=== PATIENT | male | born 1950 | race Caucasian/White ===

== ENCOUNTER 2019-02-09 11:52 | Emergency (ER) | payer MEDICARE ==
[2019-02-09] MEDS ORDERED: Ondansetron ODT 4 MG TAB ONE (12:55)
[2019-02-09] MEDS ORDERED: HYDROcodone/Acetaminophen 5/325 mg Tablet ONE (12:55)
== END 2019-02-09 12:59 | disposition home or self-care (01) ==
LOC: NAV ERS 11:52
DX: H40.211 Acute angle-closure glaucoma, right eye (principal); I10 Essential (primary) hypertension; F17.210 Nicotine dependence, cigarettes, uncomplicated
CPT/HCPCS: 99283; Q0162